=== PATIENT | male | born 1945 | race Caucasian/White ===

== ENCOUNTER 2019-06-28 10:24 | Emergency (ER) | payer OTHER ==
[~2019-06-28] VITALS: Ht 170.2 cm; Wt 85.3 kg
[2019-06-28 10:25] VITALS: Ht 170.2 cm; Wt 85.3 kg
[2019-06-28 12:31] VITALS: BP 146/96
== END 2019-06-28 12:31 | disposition home or self-care (01) ==
LOC: ED 10:24
DX: J44.9 Chronic obstructive pulmonary disease, unspecified (principal); I10 Essential (primary) hypertension; F17.210 Nicotine dependence, cigarettes, uncomplicated; Z76.0 Encounter for issue of repeat prescription
CPT/HCPCS: 99406